=== PATIENT | female | born 2000 | race Two or more races ===

== ENCOUNTER 2024-02-20 05:37 | Inpatient (IN) | payer MEDICAID, SELFPAY ==
--- NOTE | 2024-02-15 14:33 | ESHP_ITS ---
RE: MARIANA STEVENSON : 2000 DATE OF ADMISSION: 02/20/2024 DATE OF SURGERY: 02/20/2024 HISTORY OF PRESENT ILLNESS: This is a 23-year-old 5, para 1-0-3-1 with due date 02/29/2024 with intrauterine at 38 weeks and 5 days, who presents for repeat delivery. The patient's was complicated by antiphospholipid antibody syndrome for which the patient takes Lovenox 40 mg subcutaneous daily. She has had serial maternal medicine ultrasounds during her , which have shown normal anatomy and adequate interval growth. The patient is multiparous and she desires voluntary sterilization. The patient has sickle cell trait, but father of the baby does not have the trait. ALLERGIES: NO KNOWN DRUG ALLERGIES. HOME MEDICATIONS: 1. multivitamin 1 p.o. daily. 2. Lovenox 40 mg subcutaneous daily. 3. Baby aspirin 81 mg 1 p.o. daily. SOCIAL HISTORY: She denies any alcohol, drug use or smoking. PAST MEDICAL HISTORY: Antiphospholipid antibody syndrome, migraine headaches. FAMILY HISTORY: Heart disease in paternal grandfather. OBSTETRIC HISTORY: In 2017, 6 weeks spontaneous AB with D and C. In 2019, 11 weeks spontaneous AB with D and C. In 2020, 6 week spontaneous AB with D and C. On 09/21/2022, 39 weeks, delivery, 6 pound 14 ounce female, no complications. PAST SURGICAL HISTORY: delivery in 2022, and D and C in 2017, 2019 and 2020. In addition to other past surgical histories include tonsillectomy. REVIEW OF SYSTEMS: She denies any chest pain, palpitations, cough, fever, shortness of breath, or lower extremity pain. She denies any headache, change in vision, right upper quadrant pain. PHYSICAL EXAMINATION: VITAL SIGNS: Blood pressure 120/70, heart rate 88, respirations 18, temperature is 98.2. HEENT: Oropharynx and sclerae are clear. LUNGS: Clear to auscultation bilaterally. CARDIOVASCULAR: Heart has a regular rate and rhythm. ABDOMEN: Gravid, term size. Old Pfannenstiel scar noted. PEVIC: Deferred. EXTREMITIES: Nontender. SKIN: No gross rashes or lesions. NEUROLOGIC: No focal deficit. ASSESSMENT: Intrauterine at 38 weeks and 5 days on 02/20/2024, antiphospholipid antibody syndrome, previous delivery, elects repeat delivery, multiparity, desires voluntary sterilization. PLAN: Repeat delivery and bilateral tubal ligation. Informed consent was obtained. The patient made aware of the risks, complications, alternatives, and benefits of the proposed procedure. She agrees. She is aware of the failure rate and increased risk of tubal ectopic gestation if occurs. She is aware of the reversible methods of control and she declines those methods. DT: 13:13:46 TT: 14:31:00 Ref: [id number] - TID: [id number]
[2024-02-19 11:33] LABS: Basophils % (Auto) 0 % (0-2.5); Eosinophils # (Auto) 0.1 Thou/mm3 (0.0-0.5); Eosinophils % (Auto) 1 % (0-10); Hematocrit 35.5 % (36.0-46.0); Hemoglobin 12.5 g/dL (12.0-16.0); Immature Granulocytes % (Auto) 1 % (0-0); Immature Granulocytes Auto 0.09 Thou/mm3 (0.00-0.00); Lymphocytes # (Auto) 2.2 Thou/mm3 (1.0-4.8); Lymphocytes % (Auto) 25 % (10-50); Mean Corpuscular HGB Conc 35.2 g/dl (31.0-37.0); Mean Corpuscular Hemoglobin 30.8 pg (25.0-35.0); Mean Corpuscular Volume 87 fL (80-100); Monocytes # (Auto) 0.7 Thou/mm3 (0.0-0.8); Monocytes % (Auto) 8 % (0-12); Neutrophils # (Auto) 5.7 Thou/mm3 (1.8-7.7); Neutrophils % (Auto) 65 % (37-80); Nucleated Red Blood Cell % 0 /100 WBC (0); Platelet Count 164 Thou/mm3 (140-440); RDW Standard Deviation 44.1 fL (36.4-46.3); Red Blood Count 4.06 Miln/mm3 (4.00-5.20); White Blood Count 8.8 Thou/mm3 (3.6-11.0)
[2024-02-19 12:04] LABS: Alanine Aminotransferase < 7 U/L (10-49); Albumin, Serum 3.9 gm/dL (3.5-5.0); Albumin/Globulin Ratio 1.6 (1.2-2.2); Alkaline Phosphatase 79 U/L (46-116); Anion Gap 7 (7-16); Aspartate Amino Transferase 13 U/L (0-34); BUN/Creatinine Ratio 17 Ratio (12-20); Bilirubin,Total 0.8 mg/dL (0.3-1.2); Blood Urea Nitrogen 10 mg/dL (9-23); Calcium 9.6 mg/dL (8.3-10.6); Calcium (Corrected) 9.7 mg/dL (8.5-10.1); Carbon Dioxide 24.3 mMol/L (20.0-31.0); Chloride 103 mMol/L (98-107); Creatinine (Component) 0.6 mg/dL (0.6-1.3); Globulin 2.5 gm/dL (2.3-3.5); Glucose 74 mg/dL (74-106); Osmolality,Calculated 266 (275-295); Sodium 134 mMol/L (136-145); Total Protein 6.4 gm/dL (5.7-8.2); eGFR > 60 See Note
[2024-02-19 12:05] LABS: INR 0.9 (0.9-1.3); Partial Thromboplastin Time 25.4 Seconds (22.0-36.0); Prothrombin Time 10.1 Seconds (9.0-12.2)
[2024-02-19 12:09] LABS: Syphilis Nonreactive (Nonreactive)
[2024-02-20] VITALS (14 sets, daily range): BP systolic 91–131; BP diastolic 61–83; PULSE 60–75; RESP 16–18; TEMP 36.3–37; O2SAT 97–100; BMI 32.8
[2024-02-20] MEDS: RINGERS LACTATED 1000 ML 1,000 ML 100 ML IV (07:14)
[2024-02-20] MEDS: CITRIC ACID/SODIUM CITR 15 ML UDC (BICITRA) 30 ML PO (07:15)
[2024-02-20] MEDS: ceFAZolin/D5W 2 GM IV 2 GM/100 ML BAG IV (07:15)
[2024-02-20] MEDS: FAMOTIDINE INJ 10 MG/ML VIAL 2 ML 20 MG IV (07:15)
--- NOTE | 2024-02-20 07:49 | PD.LDDS ---
DS: Providers Provider Date of admission: 02/20/24 05:37 Primary care physician: Nikolas Dorsey PA-C Admitting Provider: Andres Schreiber MD Attending Provider on Admission: Andres Schreiber MD Attending Provider on DC: Andres Schreiber MD Discharging Provider: Andres Schreiber MD DS: Diagnosis Problem List Completed Was Problem List Reviewed/Reconciled?: Yes Summary/Hosp Course Peripartum Data Procedures: Procedures Operation Date: 02/20/24 07:45 <No data on this case meets the specified criteria> Time Spent with Patient Time attestation: Total time spent providing and/or coordinating discharge services: Exam Vital Signs Temp Pulse Resp BP Pulse Ox O2 Del Method 98.4 F 75 18 118/81 97 Room Air 02/20/24 06:05 02/20/24 06:05 02/20/24 06:05 02/20/24 06:05 02/20/24 06:05 02/20/24 06:05 Discharge Plan Plan Patient Disposition: HOME (Self Care) Patient condition on transfer: Stable Prescriptions/Referrals Prescriptions/Med Rec: No Action [id number] 1 mg Tablet 1 tab PO DAILY enoxaparin [Lovenox] 40 mg/0.4 mL Syringe 40 mg subcut hydrocodone-acetaminophen 5-325 mg tablet 1 tab PO Q6H MDD 4 PRN (Reason: pain) Qty: 20 0RF Referrals: Nikolas Dorsey PA-C [Primary Care Provider] - Patient/Caregiver Discharge Instructions Discharge Activity: activity as tolerated Other Discharge Activity Instructions:: Follow up office 1 weeks. Education Materials: C Section Dc Print Language: Ethiopian Stand Alone Forms: Tiki Award Info., Patient Portal Info Letter Planned Discharge Date 02/22/24
--- NOTE | 2024-02-20 09:02 | OBDSUM_ITS ---
Data (Marcum) Data Hx Section: No : 5 Para: 1 Term: 1 : 0 : 3 Delivery Data (Marcum) Labor Data ROM Date: 02/20/24 ROM Time: 08: Rupture Type: AROM Amniotic Fluid: Clear Delivery Data EDC: 02/29/24 EDC calculated by:: LMP/early US confirmation Labor Onset Stage 1 Date: 02/20/24 Labor Onset Stage 1 Time: 08: Labor Onset Stage 2 Date: 02/20/24 Labor Onset Stage 2 Time: 08: Delivery Date: 02/20/24 Delivery Time: 08 Gestational age (weeks): 38 Gestational age (days): 5 Placenta Delivery Date: 02/20/24 Placenta Delivery Time: 08: Delivered by: Andres Schreiber Delivery nurse: Sindy Whitaker Other staff at delivery: Nursery Nurse Other staff at delivery: 2nd Nurse Other staff at delivery: RT Other staff at delivery: Marsha Winters Other staff at delivery: Stephanie Silva Other staff at delivery: KAUSHIK Delivery Method Delivery: Delivery Type: Repeat Presentation: Vertex Position: OA Anesthesia Type Primary Anesthesia: Spinal Placenta Placenta Delivery: Manual Placenta Cultures Obtained: No Placenta Sent for Examination: No Cord Sample: Cord Blood Obtained EBL Estimated blood loss (ml): 600 Umbilical Cord Nuchal Cord: x1 Additional Procedures Bilateral salpingectomy Complications Complications: None Data (Marcum) [place] Data Gender: Male Infant Weight Grams: 3545 1 Minute Total: 9 5 Minute Total: 9
--- NOTE | 2024-02-20 09:38 | ESOP_ITS ---
RE: MARIANA STEVENSON : 2000 DATE OF OPERATION: 02/20/2024 PREOPERATIVE DIAGNOSIS: 1. Intrauterine at 38 weeks and 5 days. 2. Antiphospholipid antibody syndrome. 3. Previous delivery, elects repeat delivery. 4. Multiparity, desires voluntary sterilization. POSTOPERATIVE DIAGNOSIS: 1. Intrauterine at 38 weeks and 5 days. 2. Antiphospholipid antibody syndrome. 3. Previous delivery, elects repeat delivery. 4. Multiparity, desires voluntary sterilization. 5. Endometriosis, stage I. PROCEDURE PERFORMED: Repeat low transverse section via Pfannenstiel skin incision and bilateral salpingectomy. SURGEON: Andres Schreiber DO SOLUTION ADVISOR: BESSY Mata ANESTHESIA: Spinal. ANESTHESIOLOGIST: Romulo Mendenhall CRNA ESTIMATED BLOOD LOSS: 600 mL COMPLICATIONS: None. COUNTS: Correct. PATHOLOGY: Bilateral fallopian tubes. FINDINGS: A viable male . Apgars, see RN notes. Placenta removed completely intact. Nuchal cord. Clear amniotic fluid. Ovaries, fallopian tubes grossly within normal limits. Superficial endometriotic implants on the left uterosacral ligament. DESCRIPTION OF PROCEDURE: After proper informed consent was obtained and the patient made aware of the risks, complications, alternatives, benefits of the proposed procedure, she was taken to the operating room where she underwent induction of spinal anesthesia. She was placed in dorsal supine position with leftward tilt. She was prepped and draped in sterile fashion. Timeout was performed. Pfannenstiel skin incision made with scalpel and carried through to the underlying layer of fascia with the Bovie. The fascia was nicked in the midline and incision extended bilaterally with the Bovie. The inferior aspect of fascial incision was grasped with Veronica clamps, elevated, and the underlying rectus muscle dissected off with the Bovie. Superior aspect of fascial incision was grasped with Veronica clamps, elevated, and the underlying rectus muscle dissected off with the Bovie. The rectus muscles were in the midline. The peritoneum identified between 2 Crews clamps and entered sharply with Metzenbaum scissors. Incision was extended superiorly and inferiorly with good visualization of bladder. The bladder blade was inserted. Vesicouterine peritoneum was incised transversely and bladder flap created digitally. Bladder blade was reinserted. Lower uterine segment incised in transverse fashion with scalpel. The incision was extended bilaterally digitally. The 's head delivered. Mouth and nose suctioned with bulb suction. The nuchal cord was reduced. Shoulder and body delivered atraumatically. The cord was clamped and cut. Infant sent off awaiting pediatric staff. Cord blood and gases were sent. Cord blood was sent. No cord blood and gases were sent. The placenta was removed manually. The uterus exteriorized and cleared of all clots and debris. The uterine incision was repaired with #1-0 chromic catgut suture in a running locking fashion. Second layer of same suture was used to imbricate the first layer and obtained excellent hemostasis. Attention was then turned to the right fallopian tube, which was grasped with the Manuel clamps and using the Enseal X1 Large Jaw, a right salpingectomy was performed. Hemostasis was achieved. Attention was then turned to the left fallopian tube, which was grasped with 2 Bethany clamps and using the Enseal X1 Large Jaw, left salpingectomy was performed. Hemostasis was achieved. Attention was then turned to the vesicouterine peritoneum that was closed with 2-0 chromic catgut suture in running fashion. The fundus was firm. The uterus was returned to the abdomen. The gutters were cleared of all clots and debris. The peritoneum was closed with 0 chromic catgut suture in running fashion. The muscle closed with 0 chromic catgut suture in running fashion. The fascia was closed with 0 Vicryl beginning at each angle and ending center in a running fashion. Subcutaneous tissue was irrigated with normal saline solution and found to be hemostatic, closed with 2-0 chromic catgut suture in running fashion. The skin was closed with 4-0 Monocryl and Dermabond. Perineal dressing was applied. A sterile pressure dressing was applied. She tolerated the procedure well. Counts were correct. I discussed with the patient, the nature of her condition, intraoperative findings, expectation for recovery. All questions answered. DT: :: TT: 09:36:00 Ref: [id number] - TID: [id number]
[2024-02-20] MEDS: OXYTOCIN in NS 20 units 20 UNIT/1,000 ML BAG 125 UNIT IV ×2 (10:05→17:59)
--- NOTE | 2024-02-20 11:38 | PC.NURSE ---
Dr. Schreiber called over the phone and made aware pt.'s urine output, s/p repeat c/s and BTL has been 50 ml for the past 2 hours. Urine output clear, yellow urine. Bladder non-distended. Dr. Schreiber ordered to administer IV 0.9% NS bolus over an hour. POC discussed with pt., pt. verbalized understanding. Alma Silva RN
[2024-02-20] MEDS: SODIUM CHLORIDE 0.9% 1000 ML 1,000 ML 999 ML IV (11:45)
[2024-02-20 14:03] LABS: Basophils % (Auto) 0 % (0-2.5); Eosinophils % (Auto) 0 % (0-10); Hematocrit 34.2 % (36.0-46.0); Hemoglobin 11.8 g/dL (12.0-16.0); Immature Granulocytes % (Auto) 1 % (0-0); Immature Granulocytes Auto 0.08 Thou/mm3 (0.00-0.00); Lymphocytes # (Auto) 1.5 Thou/mm3 (1.0-4.8); Lymphocytes % (Auto) 10 % (10-50); Mean Corpuscular HGB Conc 34.5 g/dl (31.0-37.0); Mean Corpuscular Hemoglobin 30.8 pg (25.0-35.0); Mean Corpuscular Volume 89 fL (80-100); Monocytes # (Auto) 0.8 Thou/mm3 (0.0-0.8); Monocytes % (Auto) 5 % (0-12); Neutrophils # (Auto) 12.4 Thou/mm3 (1.8-7.7); Neutrophils % (Auto) 84 % (37-80); Nucleated Red Blood Cell % 0 /100 WBC (0); Platelet Count 155 Thou/mm3 (140-440); RDW Standard Deviation 44.8 fL (36.4-46.3); Red Blood Count 3.83 Miln/mm3 (4.00-5.20); White Blood Count 14.8 Thou/mm3 (3.6-11.0)
[2024-02-20] MEDS: KETOROLAC INJ 30 MG/ML VIAL IVP (21:25)
--- NOTE | 2024-02-20 22:25 | PC.NURSE ---
pt unaware that she could request medications for pain. pt educated on pain management and made aware of her pain medication orders available to her.
[2024-02-21] VITALS: BP 100/63; PULSE 66; RESP 16; TEMP 36.7; O2SAT 96
[2024-02-21] MEDS: KETOROLAC INJ 30 MG/ML VIAL IVP (03:45)
[2024-02-21 03:50] VITALS: BP 99/65; PULSE 62; RESP 15; TEMP 36.7; O2SAT 97
[2024-02-21 08:15] VITALS: BP 95/61; PULSE 69; RESP 16; TEMP 36.9; O2SAT 98
[2024-02-21] MEDS: ENOXAPARIN SOD INJ 40 MG/0.4 ML SYRINGE SC (08:32)
[2024-02-21] MEDS: HYDROcodone/APAP 5/325 TABLET 1 TAB PO ×2 (08:53→20:05)
[2024-02-21 12:13] VITALS: BP 103/63; PULSE 75; RESP 16; TEMP 36.7; O2SAT 97
[2024-02-21] MEDS: IBUPROFEN TAB 400 MG TABLET 800 MG PO ×2 (12:20→22:38)
[2024-02-21] MEDS: ACETAMINOPHEN 325 MG TABLET 650 MG PO (15:30)
[2024-02-21] MEDS: Milk Of Magnesia Susp 30 ML UDC PO (16:23)
[2024-02-21 20:00] VITALS: BP 116/77; PULSE 80; RESP 16; TEMP 36.9; O2SAT 99
--- NOTE | 2024-02-21 21:44 | PC.NURSE ---
02/21/24 2000: Patient states one side of her perineum is more swollen than the other side. Questions if this is normal. Nurse assessed area during fundal massage and looks normal. Pt educated on s/sx when to call the nurse for attention regarding this and when to call OB provider after being discharged home.
[2024-02-22] VITALS: BP 100/63; PULSE 83; RESP 18; TEMP 36.7; O2SAT 96
[2024-02-22 04:00] VITALS: BP 98/64; PULSE 72; RESP 16; TEMP 36.7; O2SAT 98
[2024-02-22] MEDS: ACETAMINOPHEN 325 MG TABLET 650 MG PO (04:10)
--- NOTE | 2024-02-22 07:07 | PD.LDPPPRG ---
Subjective Subjective Interval history: No problems or complaints Exam Vital Signs Temp Pulse Resp BP Pulse Ox O2 Del Method 98.0 F 72 16 98/64 98 Room Air 02/22/24 04:00 02/22/24 04:00 02/22/24 04:00 02/22/24 04:00 02/22/24 04:00 02/22/24 04:00 Routine Respiratory Exam Comments: CTA Routine Abdominal Exam Comments: Dressing dry and intact, nondistended. Routine Extremities Exam Comments: Non tender or edema. Objective Labs 02/20/24 13:41 02/19/24 11:12 Assessment & Plan Assessment Comment Assessment comment: s/p C/S BTL APA Syndrome Plan Comment Plan Comment: Resume Lovenox for VTE prophylaxis Care Possible Discharge Home tomorrow. Time Spent With Patient Time:
--- NOTE | 2024-02-22 07:32 | ESPR_ITS ---
RE: MARIANA STEVENSON : 2000 DATE OF SERVICE: 02/22/2024 S: Postop day #2, the patient denies any problem or complaint. She is voiding. She is ambulating. She is tolerating regular diet. She is passing flatus. She denies any excessive vaginal bleeding. She denies any dizziness or lightheadedness. She denies any chest pain, palpitation, shortness of breath, or lower extremity pain. VITAL SIGNS: Blood pressure 98/64, heart rate 72, respirations 16, temperature is 98.0, pulse oximetry is 98% on room air. LUNGS: Clear to auscultation bilaterally. HEART: Regular rate and rhythm. ABDOMEN: Nondistended. Incision clear and intact. Fundus is firm. EXTREMITIES: Nontender. ASSESSMENT: Postop day #2, status post delivery, antiphospholipid antibody syndrome. P: Continue Lovenox. Discharge home. Discharge instructions given. Followup in the office in 1 week. DT: 07:06:40 TT: 07:30:00 Ref: [id number] - TID: [id number]
[2024-02-22 08:10] VITALS: BP 96/61; PULSE 74; RESP 14; TEMP 36.8; O2SAT 97
[2024-02-22] MEDS: ENOXAPARIN SOD INJ 40 MG/0.4 ML SYRINGE SC (09:18)
[2024-02-22] MEDS: IBUPROFEN TAB 400 MG TABLET 800 MG PO (09:19)
== END 2024-02-22 11:50 | disposition home or self-care (01) | DRG 539 ==
LOC: S4SX 07:48 → S4NX 08:06
PROVIDERS: Admitting Provider Specialist; PCP Physician Assistant; Visit Provider Specialist
PROC: 0UL70ZZ Occlusion of Bilateral Fallopian Tubes, Open Approach (ICD-10-PCS; CPT 59514; principal; 2024-02-20 07:30)
DX: O34.211 Maternal care for low transverse scar from previous cesarean delivery (principal); D68.61 Antiphospholipid syndrome; O99.12 Other diseases of the blood and blood-forming organs and certain disorders involving the immune mechanism complicating childbirth; Z37.0 Single live birth; Z3A.38 38 weeks gestation of pregnancy; Z30.2 Encounter for sterilization; D57.3 Sickle-cell trait; O99.02 Anemia complicating childbirth; O69.81X0 Labor and delivery complicated by cord around neck, without compression, not applicable or unspecified; O34.83 Maternal care for other abnormalities of pelvic organs, third trimester; N80.3A Superficial endometriosis of the uterosacral ligament(s)
CPT/HCPCS: 36415; 80053; 85025; 85610; 85730; 86780; 86850; 86900; 86901; 86923; A4649; J0689; J1100; J1650; J1885; J2274; J2371; J2405; J2590; J3010; J3490; J7030; J7120; A9270; J0690; J2270

== ENCOUNTER 2024-08-16 14:38 | Emergency (ER) | payer MEDICAID, SELFPAY ==
[2024-08-16] MEDS: ACETAMINOPHEN 500 MG TABLET 1000 MG PO (15:21)
== END 2024-08-16 15:46 | disposition home or self-care (01) ==
LOC: SERX 16:20
PROVIDERS: Emergency Provider Emergency Medicine
DX: R11.2 Nausea with vomiting, unspecified (principal)
CPT/HCPCS: 99282; A9270

== ENCOUNTER 2024-08-20 17:37 | Emergency (ER) | payer MEDICAID, SELFPAY ==
[2024-08-20 18:19] VITALS: BP 113/75; PULSE 98; RESP 18; TEMP 36.6; O2SAT 100; BMI 26.9
--- NOTE | 2024-08-20 18:38 | EDNOTE_ITS ---
ED Recheck Abnl Lab Rx-RME/HPI General Chief Complaint: Recheck/Abnormal Lab/Rx Stated Complaint: SENT BY PCP FOR LOW POTASSIUM Time Seen by Provider: 08/20/24 18:30 Arrival date/time: 08/20/24 17:37 24F with history of endometriosis presents to ED for low potassium, but known how low. Patient went to [facility] 2 days ago and was diagnosed with influenza and PNA and has been taking ABX. Patient has had N/V and non-bloody diarrhea. Apparently, [facility] discharged patient before the lab results were back. PCP saw the results and told pt to come to nearest ED. Limitations: no limitations Related Data Home Medications ?Medication ?Instructions ?Recorded ?Confirmed vepclgfv-[id number]-Ci-FA 1 mg 1 tab PO DAILY 07/23/22 tablet enoxaparin 40 mg/0.4 mL 40 mg subcut 07/26/22 subcutaneous syringe (Lovenox) Previous Rx's ?Medication ?Instructions ?Recorded hydrocodone 5 mg-acetaminophen 325 1 tab PO Q6H PRN pa in #20 tabs 08/12/22 mg tablet enoxaparin 40 mg/0.4 mL 40 mg (0.4 mL) subcut QDAY A PA 02/22/24 subcutaneous syringe (Lovenox) syndrome #12 mL ibuprofen 600 mg tablet 600 mg PO Q6H PRN pain #30 t abs 02/22/24 Allergies Allergy/AdvReac Type Severity Reaction Status Date / Time No Known Allergies Allergy Verified 08/10/22 12:40 Review of Systems Review of Systems Systems Reviewed: All systems reviewed, normal except as documented Constitutional Constitutional: Reports system reviewed and no additional complaints, except as documented, Denies fever(s) and Denies headache(s) ENT Ears, Nose, Mouth, and Throat: Denies disequilibrium and Denies headache(s) Cardiovascular Cardiovascular: Reports system reviewed and no additional complaints, except as documented, Denies chest pain and Denies dyspnea Respiratory Respiratory: Reports system reviewed and no additional complaints, except as documented, Denies cough and Denies dyspnea Gastrointestinal Gastrointestinal: Reports system reviewed and no additional complaints, except as documented, Denies abdominal pain, Denies nausea and Denies vomiting Neurologic Neurologic: Reports system reviewed and no additional complaints, except as documented, Denies confusion, Denies disequilibrium and Denies headache(s) Psychiatric Psychiatric: Denies confusion Past Medical History Past Medical History NEUROLOGIC: Positive Migraine; Negative Neurological Disorders, Seizures or Head Trauma CARDIAC: Negative Cardiac Disorders, Heart Murmur, Congestive Heart Failure, Edema, Cellulitis, Hypertension, Hypotension or Varicose Veins RESPIRATORY: Positive Pneumonia ([facility]); Negative Chronic Obstructive Pulmonary Disease (COPD), Asthma, Bronchitis or Tuberculosis GASTROINTESTINAL: Negative Gastrointestinal Disorders or Hepatitis GENITOURINARY: Negative Genitourinary Disorders or Renal Disease REPRODUCTIVE: Positive Previous Pregnancies (X3); Negative Breast Cancer, Endometriosis, Genital Herpes, Gonorrhea, Pelvic Inflammatory Disease or Syphilis MUSCULOSKELETAL: Negative Musculoskeletal Disorders or Fractures ENT: Negative Head Trauma ENDOCRINE: Negative Endocrine Disorders, Diabetes Mellitus Type 1 or Diabetes Mellitus Type 2 HEMATOLOGIC: Positive Blood Disorders and Anemia (TAKES MED) PSYCHO/SOCIAL: Negative Depression, Anxiety or Depression OTHER HISTORY: Negative Hospitalization, Autoimmune Disease, Shingles, Falls, Blood Transfusions, Blood Transfusion Reaction, Anesthesia Reactions, Organ Transplant, Chemotherapy, Radiation Therapy, MRSA, VRSA, Vancomycin-Resistant Enterococci, Human Immunodeficiency Virus (HIV), Chicken Pox, Measles, Mumps, Rubella (Wallisian Measles), Pertussis, Clostridium Difficile, Cancer or Breast Cancer Family History FAMILY HISTORY: Positive Family Surgery (FATHER); Negative Family Psychiatric Problems, Family Respiratory Disorders, Family Cardiac Disorders, Family Gastrointestinal Problems, Family Cancer or Family Anesthesia Reaction Surgical History SURGICAL: Positive Tonsillectomy (2014); Negative Cardiac Surgery, Pacemaker, Endocrine Surgery, Abdominal Surgery, Nephrectomy, Joint Replacement, Neurologic Surgery, Brain Shunt, Lumpectomy, Tubal Ligation, Section or Organ Transplant Social History SMOKING STATUS: Never smoker ED Exam General Limitations: Present no limitations General appearance: Present alert and in no apparent distress Head Head exam: Present atraumatic Eye Eye exam: Present normal appearance, PERRL and EOMI ENT ENT exam: Present normal exam, normal oropharynx and mucous membranes moist Neck Neck exam: Present normal inspection, full ROM and trachea midline Chest Chest inspection: Present normal inspection and symmetric chest wall rise Respiratory Respiratory exam: Present normal lung sounds bilaterally Cardiovascular Cardiovascular exam: Present regular rate, normal rhythm and normal heart sounds Abdominal Exam Abdominal exam: Present soft and normal bowel sounds Extremities Exam Extremities exam: Present normal inspection and full ROM Back Exam Back exam: Present normal inspection and full ROM Neurological Exam Neurological exam: Present alert, oriented X3 and CN II-XII intact Psychiatric Psychiatric exam: Present normal affect and normal mood Skin Skin exam: Present warm, dry, intact and normal color Course Quality Measures none Orders Category Date Time Status CBC Stat Lab 08/20/24 18:36 Completed CMP [Comprehensive Metabolic Panel] Stat Lab 08/20/24 18:36 Completed Mag [Magnesium] Stat Lab 08/20/24 18:36 Completed Vital Signs Vital signs: Vital Signs Temperature 98 F 08/20/24 18:19 Pulse Rate 98 08/20/24 18:19 Respiratory Rate 18 08/20/24 18:19 Blood Pressure 113/75 08/20/24 18:19 Pulse Oximetry (%) 100 08/20/24 18:19 Oxygen Delivery Method Room Air 08/20/24 18:19 O2 at 100% on RA and WNLs Recheck / Abnormal Lab / Rx MDM Narrative MDM Narrative:: 24F with history of endometriosis presents to ED for low potassium, but known how low. Patient went to [facility] 2 days ago and was diagnosed with influenza and PNA and has been taking ABX. Patient has had N/V and non-bloody diarrhea. Apparently, [facility] discharged patient before the lab results were back. PCP saw the results and told pt to come to nearest ED. Physical exam reveals well-appearing female. Normal WOB. Speech normal. Gait normal. Patient is afebrile, calm, and alert. All labs unremarkable including normal K and Mg. Patient data External records reviewed:: [facility] previous records Clinical information provided by:: patient Social determinants that could affect healthcare access:: none Patient has the following chronic illnesses:: endometriosis How is presenting disease/condition affected by chronic disease/condition?: uneffected by Evaluation data The following diagnostics were reviewed and interpreted by me:: lab results Lab and/or radiology exams considered but not ordered:: ordered Interpretation Summary: above Medications / Prescriptions Medications or Prescriptions considered but not ordered:: not ordered Medication administrations:: n/a Consultations Consultation(s) initiated? (list below): No Diagnosis Recheck Differential Diagnosis: encounter for medication refill, encounter for wound recheck, encounter for recheck of burn, encounter for removal of sutures, warfarin-induced coagulopathy and other (lab exam) Most likely diagnosis given after review of the tests above:: lab exam Admission Indicated Admission indicated?: not indicated Admission Request Was there a request for admission?: No Disposition Plan Disposition Plan: Discharge Discharge Attestation Discharge Attestation: The patient and all family members were given an opportunity to ask questions and understood the discharge instructions. Discharge instructions specifically effects, indications for sooner follow up or return to the emergency department, and the expected course of current diagnosis. Patient condition: Stable Discharge Plan Plan Patient Disposition: HOME (Self Care) Discharge Disposition comment: Stable Prescriptions/Referrals Prescriptions/Med Rec: No Action wcuxdkwj-ihm-Lt-FA 1 mg Tablet 1 tab PO DAILY enoxaparin [Lovenox] 40 mg/0.4 mL Syringe 40 mg subcut hydrocodone-acetaminophen 5-325 mg tablet 1 tab PO Q6H MDD 4 PRN (Reason: pain) Qty: 20 0RF enoxaparin [Lovenox] 40 mg/0.4 mL syringe 40 mg subcut QDAY Qty: 12 1RF ibuprofen 600 mg tablet 600 mg PO Q6H PRN (Reason: pain) Qty: 30 0RF Referrals: Gustavo Goodson MD [Primary Care Provider] - In 1 week Problem List Clinical Impression: Admission for laboratory examination Patient/Caregiver Discharge Instructions Additional Instructions: Please follow-up with PCP within 24-48 hours and return immediately if symptoms worsen. Print Language: Andorran Stand Alone Forms: Patient Portal Info Letter RADHA/DRE Supervising Physician RADHA/DRE Supervising Physician: Dr. Lamb
[2024-08-20 18:52] LABS: Basophils % (Auto) 0 % (0-2.5); Eosinophils % (Auto) 0 % (0-10); Hematocrit 35.3 % (36.0-46.0); Hemoglobin 12.5 g/dL (12.0-16.0); Immature Granulocytes % (Auto) 1 % (0-0); Immature Granulocytes Auto 0.06 Thou/mm3 (0.00-0.00); Lymphocytes # (Auto) 1.4 Thou/mm3 (1.0-4.8); Lymphocytes % (Auto) 17 % (10-50); Mean Corpuscular HGB Conc 35.4 g/dl (31.0-37.0); Mean Corpuscular Hemoglobin 28.8 pg (25.0-35.0); Mean Corpuscular Volume 81 fL (80-100); Monocytes # (Auto) 0.7 Thou/mm3 (0.0-0.8); Monocytes % (Auto) 9 % (0-12); Neutrophils # (Auto) 5.7 Thou/mm3 (1.8-7.7); Neutrophils % (Auto) 72 % (37-80); Nucleated Red Blood Cell % 0 /100 WBC (0); Platelet Count 271 Thou/mm3 (140-440); RDW Standard Deviation 39.8 fL (36.4-46.3); Red Blood Count 4.34 Miln/mm3 (4.00-5.20); White Blood Count 7.9 Thou/mm3 (3.6-11.0)
[2024-08-20 19:09] LABS: Alanine Aminotransferase 10 U/L (10-49); Albumin, Serum 4.5 gm/dL (3.5-5.0); Albumin/Globulin Ratio 1.7 (1.2-2.2); Alkaline Phosphatase 62 U/L (46-116); Anion Gap 11 (7-16); Aspartate Amino Transferase 17 U/L (0-34); BUN/Creatinine Ratio 7 Ratio (12-20); Bilirubin,Total 0.4 mg/dL (0.3-1.2); Blood Urea Nitrogen < 5 mg/dL (9-23); Calcium 9.4 mg/dL (8.3-10.6); Calcium (Corrected) 9.4 mg/dL (8.5-10.1); Chloride 98 mMol/L (98-107); Creatinine (Component) 0.7 mg/dL (0.6-1.3); Estimated Creatinine Clearance 113.5 mL/min (>60); Globulin 2.7 gm/dL (2.3-3.5); Glucose 132 mg/dL (74-106); Magnesium 1.9 mg/dL (1.6-2.6); Osmolality,Calculated 269 (275-295); Potassium 3.7 mMol/L (3.4-5.1); Sodium 135 mMol/L (136-145); Total Protein 7.2 gm/dL (5.7-8.2); eGFR > 60 See Note
== END 2024-08-20 19:23 | disposition home or self-care (01) ==
PROVIDERS: Physician Assistant; Emergency Provider Emergency Medicine; PCP Family Medicine
DX: Z00.00 Encounter for general adult medical examination without abnormal findings (principal)
CPT/HCPCS: 36415; 80053; 83735; 85025; 99283